=== PATIENT | male | born 1955 ===

== ENCOUNTER → 2020-04-02 15:35 | Outpatient (CLI) | payer MEDICARE ==
[2020-04-02 19:21] LABS: HEMATOCRIT 46.4 % (42.0-54.0); HEMOGLOBIN 14.7 g/dL (13.5-17.5); LYMPHOCYTES 15.9 % (15-50); MCH 28.7 pg (26.0-34.0); MCHC 31.7 g/dL (31.0-37.0); MCV 90.6 fL (80.0-100.0); MEAN PLATELET VOLUME 10.3 fL (7.4-10.4); NEUTROPHILS 70.7 % (40-80); PLATELET COUNT 230 10x3/uL (130-400); RBC 5.12 10x6/uL (4.20-6.10); RDW 13.2 % (11.5-14.5); WBC 7.6 10x3/uL (4.8-10.8)
[2020-04-02 19:48] LABS: ALBUMIN 4.1 g/dL (3.4-5.0); ANION GAP 13.5 mmol/L (8-16); BILIRUBIN - TOTAL 0.89 mg/dL (0.2-1.3); CALCIUM 9.4 mg/dL (8.5-10.1); CARBON DIOXIDE 26.9 mmol/L (21.0-32.0); CREATININE - SERUM 1.2 mg/dL (0.6-1.3); POTASSIUM - SERUM 4.4 mmol/L (3.5-5.1); PROTEIN - SERUM 7.6 g/dL (6.4-8.2); T4 THYROXIN - FREE 1.48 ng/dL (0.76-1.46); THYROID STIMULATING HORMONE 1.01 uIU/mL (0.36-3.74)
== END | disposition home or self-care (01) ==
LOC: D.LABREF 15:35
DX: R19.7 Diarrhea, unspecified (principal); R63.4 Abnormal weight loss